=== PATIENT | female | born 1955 | race Two or more races ===

== ENCOUNTER → 2016-09-17 | Outpatient (CLI) | payer BC, OTHER ==
--- NOTE | 2016-09-18 11:18 | MM ---
Reason for exam: screening (asymptomatic). Baseline mammogram. History: Patient is postmenopausal. Family history of breast cancer in paternal aunt. Physical Findings: Nurse did not find any significant physical abnormalities on exam. MG Screening Mammo w CAD Bilateral CC and MLO view(s) were taken. The breast tissue is heterogeneously dense. This may lower the sensitivity of mammography. Finding #1: There is a high density, obscured margin irregular mass in the upper inner quadrant, middle position of the right breast, 6cm from the nipple. Finding #2: There are typically benign round, diffuse/scattered calcifications in the right breast. ASSESSMENT: Incomplete: need additional imaging evaluation, BI-RAD 0 RECOMMENDATION: Special view mammogram of the right breast. If lesion persists on supplemental views, image directed ultrasound is recommended. [facility] will attempt to contact patient to return for supplemental views and ultrasound if indicated.
== END | disposition home or self-care (01) ==
LOC: RADMAMWWP 10:06
PROVIDERS: ATTEND Internal Medicine
DX: Z12.31 Encounter for screening mammogram for malignant neoplasm of breast (principal)

== ENCOUNTER → 2016-09-24 | Outpatient (CLI) | payer BC, OTHER ==
--- NOTE | 2016-09-25 07:02 | MM ---
Reason for exam: additional evaluation requested from abnormal screening. Last mammogram was performed less than 1 month ago. History: Patient is postmenopausal. Family history of breast cancer in paternal aunt. Physical Findings: Breast exam preformed at baseline screening. MG Work Up Mamm w CAD RT Spot compression CC, spot compression MLO, and LM view(s) were taken of the right breast. Prior study comparison: September 17, 2016, bilateral MG screening mammo w CAD. Asymmetric breast tissue. No distinct lesion persists. These results were verbally communicated with the patient and result sheet given to the patient on 09/24/16. ASSESSMENT: Benign, BI-RAD 2 RECOMMENDATION: Return to routine screening mammogram schedule for both breasts.
== END | disposition home or self-care (01) ==
LOC: RADMAMWWP 14:03
PROVIDERS: ATTEND Internal Medicine
DX: R92.8 Other abnormal and inconclusive findings on diagnostic imaging of breast (principal)

== ENCOUNTER 2016-10-28 09:23 | Day surgery (SDC) | payer OTHER ==
[2016-10-24 13:49] VITALS: BMI 33.0
[~2016-10-28 09:23] MED LIST: LACTATED RINGERS 1,000 ML IV SCH; LIDOCAINE 1% 20 ML VIAL (10MG/ML) FOR IV START INTRADERMA PRN
[2016-10-28] MEDS ORDERED: LIDOCAINE 1% 20 ML VIAL (10MG/ML) FOR IV START INTRADERMA ONE (10:11)
[2016-10-28] MEDS ORDERED: LACTATED RINGERS 1,000 ML IV ONE (10:11)
[2016-10-28 10:15] VITALS: RESP 18; TEMP 98
[2016-10-28] MEDS ORDERED: PROPOFOL 10 MG/ML 20 ML VIAL IV ONE (10:43)
[2016-10-28] MEDS ORDERED: LIDOCAINE 1% INJ 10MG/ML (20 ML MDV) ONE (10:43)
--- NOTE | 2016-10-28 11:07 | P.OP ---
Date of Procedure: 10/28/16 Preoperative Diagnosis: Screening Postoperative Diagnosis: 1. Pedunculated sigmoid polyp at 20 cm from the anal verge. 2 moderate diverticulosis. 3. Grade 2-3 internal and external hemorrhoids Procedure(s) Performed: Colonoscopy and snare polypectomy [place]est[place] [facility] [place]geon: Hari Devlin Estimated Blood Loss (ml): 0 Pathology: other (polyp) Condition: stable Disposition: same day Indications for Procedure: Screening Operative Findings: Pedunculated sigmoid polyp. Moderate diverticulosis. About grade 2-3 internal and a large external hemorrhoid. Description of Procedure: With the patient in the left lateral position rectal digital examination was normal. There were no palpable masses. There was an external hemorrhoid. The video colonoscope was inserted transanally and advanced all the way to the cecum which was entered without visualized. The mucosa were thoroughly examined. Findings as above. The polyp was removed completely with the snare cautery with good hemostasis. The patient tolerated the procedure well without any evident complication. Recommend a high-fiber diet. Follow-up colonoscopy in about 5 years.
[2016-10-28 11:38] VITALS: BP 146/90; PULSE 66
== END 2016-10-28 12:00 | disposition home or self-care (01) ==
LOC: ORWHC2ENDO 09:23
PROVIDERS: ATTEND Surgery
DX: Z12.11 Encounter for screening for malignant neoplasm of colon (principal); D12.5 Benign neoplasm of sigmoid colon; K57.30 Diverticulosis of large intestine without perforation or abscess without bleeding; K64.2 Third degree hemorrhoids; Z79.899 Other long term (current) drug therapy; Z88.0 Allergy status to penicillin
CPT/HCPCS: 88305; 45385; J2001; J2704

== ENCOUNTER → 2017-06-02 | Outpatient (CLI) | payer OTHER ==
--- NOTE | 2017-06-02 09:01 | US ---
EXAMINATION TYPE: US abdomen complete DATE OF EXAM: 06/02/2017 COMPARISON: NONE CLINICAL HISTORY: R10.31 Right Lower Abdominal Pain. Patient stated has epigastric pain. EXAM MEASUREMENTS: Liver Length: 15.7 cm Gallbladder Wall: 0.2 cm CBD: 0.6 cm Spleen: 6.6 cm Right Kidney: 9.7 x 5.2 x 4.3 cm Left Kidney: 9.3 x 5.7 x 4.8 cm Pancreas: hyperechoic but no masses seen Liver: coarse appearance Gallbladder: wnl Evidence for sonographic Deng's sign: No CBD: wnl Spleen: small for size Right Kidney: No hydronephrosis or masses seen Left Kidney: no hydronephrosis or masses seen Upper IVC: wnl Abd Aorta: wnl Visualized pancreas is unremarkable. Visualized aorta shows no aneurysmal change. Adjacent IVC is vis ualized. Visualized liver is heterogeneously hyperechoic. Evaluation for focal masses is suboptimal due to the heterogeneity. No intrahepatic ductal dilatation is seen. Common bile duct is measured upper limits of normal. No shadowing mobile gallstones are seen in gallbladder. Renal sizes are lower limits of normal with some cortical thinning felt present bilaterally. Spleen i s slightly small without suspicious focal intrasplenic mass, and is poorly visualized on images saved . IMPRESSION: No significant finding is seen to account for patient's symptoms.
== END | disposition home or self-care (01) ==
LOC: RADUSWWP 07:10
PROVIDERS: ATTEND Internal Medicine
DX: R10.31 Right lower quadrant pain (principal)
CPT/HCPCS: 76700